=== PATIENT | female | born 1955 | race Caucasian/White ===

== ENCOUNTER 2019-06-08 09:22 | Inpatient (IN) | payer MEDICAID ==
[~2019-06-08] VITALS: Ht 165.1 cm; Wt 72.6 kg
[2019-06-08 09:28] VITALS: Ht 165.1 cm; Wt 72.6 kg
--- NOTE | 2019-06-08 09:35 | NUR ---
PATIENT BIB [facility] WITH ALOC. PT WAS FOUND IN [facility]. PT RESPONDS TO TOUCH AND ANSWERS QUESTIONS WITH FEW WORD ANSWERS. PT ADMITS TO "HAVING A COCKTAIL" ETOH ODOR NOTED COMING FROM MOUTH, BREATHING E/U, SKIN WARM AND DRY, 1CM X 1 CM SKIN TEAR NOTED TO RIGHT HAND. PT PLACED ON ALL MONITORS FOR FURTHER OBSERVATION. WILL CONTINUE TO MONITOR.
--- NOTE | 2019-06-08 09:53 | NUR ---
MEDICATED PER MD ORDERS
--- NOTE | 2019-06-08 10:20 | NUR ---
PATIENT TAKEN FOR CT SCAN- VSS-
--- NOTE | 2019-06-08 10:30 | NUR ---
PATIENT PLACED ON WARMING BLANKET AND RECTAL THERMOMETER TO MONITOR TEMP. WILL CONTINUE TO MONITOR.
[2019-06-08 10:31] LABS: ALBUMIN 4.1 g/dL (3.4-5.0); ALKALINE PHOSPHATASE 90 U/L (46-116); ALT/SGPT 23 U/L (14-59); AST/SGOT 22 U/L (15-37); BILIRUBIN TOTAL 0.19 mg/dL (0.20-1.00); CALCIUM 8.1 mg/dL (8.5-10.1); CARBON DIOXIDE 25.6 mmol/L (21-32); CHLORIDE SERUM 108 mmol/L (98-107); CHOLESTEROL 153 mg/dL (<200); GFR1 59 mL/min; GLUCOSE SERUM 100 mg/dL (74-106); HDL CHOLESTEROL 51 mg/dL (40-60); POTASSIUM SERUM 3.2 mmol/L (3.5-5.1); SODIUM SERUM 143 mmol/L (136-145); TOTAL PROTEIN, SERUM 7.6 g/dL (6.4-8.2)
[2019-06-08 10:36] LABS: BASOPHIL % 0.6 % (0-2); PLATELET COUNT 213 x10^3mcL (130-400); RED CELL DISTRIBUTION WIDTH 14.2 % (11.5-14.5)
[2019-06-08 10:39] LABS: FREE T4 0.94 ng/dL (0.76-1.46); FREE THYROXINE INDEX 2.1 ug/dL (1.4-4.5); T4(THYROXINE) 6.5 ug/dL (4.7-13.3)
[2019-06-08 11:01] LABS: T3 TOTAL 1.06 ng/mL
--- NOTE | 2019-06-08 11:02 | NUR ---
PATIENT RESTING ON GURNEY- EASILY AROUSABLE. VSS, NAD NOTED. WILL CONTINUE TO MONITOR.
[2019-06-08 11:03] LABS: AMPHETAMINE QUAL UR POSITIVE (See below)
--- NOTE | 2019-06-08 12:17 | NUR ---
PATIENT SLEEPING ON GURNEY IN POSITION OF COMFORT. BREATHING E/U, NAD NOTED. WILL CONTINUE TO MONITOR.
--- NOTE | 2019-06-08 12:52 | NUR ---
PATIENT C/O BEING TOO HOT SCREAMING "GET ME OFF, ITS TOO HOT". PATIENT CORE TEMP AT 97.6, WARMING BLANKET TURNED OFF. WILL CONTINUE TO MONITOR.
--- NOTE | 2019-06-08 13:00 | NUR ---
PATIENT MORE ALERT, PT ADMITS TO HX OF METH USE BUT STS LAST TIME "SHE USED YEARS AGO". PATIENT SAYS SHE CAN'T REMEMBER WHAT TIME SHE LEFT THE HOUSE AND ENDED UP IN THE BUSHES. WILL CONTINUE TO MONITOR.
--- NOTE | 2019-06-08 13:11 | NUR ---
RECIEVED CALL FROM PATIENTS FRIEND WHO PT HAS BEEN STAYING WITH X 7 DAYS. I WAS GIVEN PERMISSION BY PT OK TO SPEAK WITH HER FRIEND "ELIAN". ELIAN CLAIMS THAT PT HAS A LOT OF HEALTH ISSUES AND HAS BEEN TRYING TO ACTIVATE HER MEDICAL. PT RAN OUT OF MEDICATIONS A FEW DAYS AGO, SO PATIENTS FRIEND GAVE HER SOME OF HER MEDICATIONS. MEDICATIONS GIVEN WERE, BUSPAR, SEROQUEL, TRAZADONE, GABAPENTIN, AND CLONIPIN. WHEN I ASKED HOW LONG PATIENT WAS OUT ALL NIGHT, FRIEND RESPONDED THAT SHE HAD NO IDEA WHEN SHE LEFT THE HOUSE BUT THOUGHT IT WAS AROUND 0600 BECAUSE "WHEN I GOT UP TO USE THE BATHROOM SHE WAS GONE BUT THE HOUSE WAS CLEANED". CONTACT FOR PATIENT IS ELIAN - CALL HER TO COAT CHECKER PATIENT WHEN PATIENT IS D/C'D. ELIAN ALSO NOTED PATIENT HAS A LONG PSYCHATRIC HX, WITH BIPOLAR BEING ONE DIAGNOSES.
--- NOTE | 2019-06-08 13:37 | NUR ---
ASSISTED PATIENT ON BED CHACON AND THEN MEDICATED PER MD ORDERS. WILL CONTINUE TO MONITOR.
--- NOTE | 2019-06-08 14:02 | NUR ---
PROVIDED REPORT TO IVY GARCIA FOR CONTINUED CARE OF PATIENT.
--- NOTE | 2019-06-08 14:29 | NUR ---
[facility] ACCOMPANIED BY RN AND TRANSPORTER. PT DROWSY, ORIENTED X 2 (PERSON, TIME), HAS SLURRED SPEECH, RESPONSES ARE SLUGGISH; COOPERATIVE TO CARE AT THIS TIME. GENERALIZED WEAKNESS, ABLE TO SLIDE FROM GUERNEY TO BED ON HER OWN, STATED THAT SHE AMBULATES AT HOME W/ CANE, C/O INTERMITTENT ACHING LEFT KNEE PAIN 5/10, EXACERBATED BY MOVEMENT AND WALKING, RELIEVED BY REST AND PAIN MEDICATIONS; FALL RISK PROTOCOL IN PLACE. ON TELE # 10, HR 85, SR + OCCASIONAL PAC'S, DENIES CHEST PAIN OR DISCOMFORT AT THIS TIME. SCD BY BEDSIDE. NO ACUTE RESPIRATORY DISTRESS NOTED. WEARS FULL UPPER DENTURES. HAS EPISODES OF BLADDER INCONTINENCE SINCE ADMISSION 2/2 ALOC, DENIES DYSURIA. NOTED PROXIMAL DORSAL RFA SKIN TEAR W/ MINIMAL SANGUINOUS DRAINAGE, COVERED W/ BANDAID. IV SITE RAC 20G, CDI. PT SMOKES 4 STICKS OF CIGARETTE PER DAY, STATED THAT SHE IS TRYING TO CUT DOWN, DENIES ETOH CONSUMPTION, DENIES DRUG USE. ORIENTED PT TO ROOM, BED CONTROLS, CALL LIGHT SYSTEM. SIDE RAILS UP X 2, BED IN LOW POSITION. WILL ENDORSE TO ANUSHA HAYNES.
[2019-06-08 15:18] VITALS: BP 174/106
[2019-06-08 17:16] VITALS: BP 139/88
--- NOTE | 2019-06-08 18:44 | NUR ---
PT SITTING UP IN BED. NO ACUTE RESP DISTRESS NOTED ON RA. PT ASKING "SHOULD I JUST GO TO THE BATHROOM IN THE BED IF I NEED TO GO" INSTRUCTED PT TO USE CALL LIGHT WHEN SHE NEEDS TO USE BATHROOM. PT VERBALIZED UNDERSTANDING. IV PATENT AND INFUSING TO LAC. NO REDNESS OR SWELLING NOTED. PT DENIES ANY PAIN AT THIS TIME. WILL ENDORSE TO COKEMAN RN. CALL LIGHT IN REACH. BED IN LOWEST POSITION.
--- NOTE | 2019-06-08 19:33 | NUR ---
RECEIVED PT FROM DAY SHIFT RN. PT AAOX4 AT THIS TIME. DENIES ANY PRICE/DIZZINESS. TELE #10 SR HR93. PT DENIES CHEST PAIN/PRESSURE. ABD SOFT/ROUND. ACTIVE BOWEL SOUNDS. DENIES AB PAIN/N/V. GENERALIZED WEAKNESS. PT ABLE TO TURN AND REPOSITION IN BED. RFA SKIN TEAR COVERED WITH DRESSING. IV RAC PATENT, INFUSING WELL. NO SIGNS OF DISTRESS. CALL BUTTON WITHIN REACH. SAFETY PRECAUTIONS IN PLACE. WILL CONTINUE TO MONITOR.
[2019-06-08 22:47] VITALS: BP 110/70
--- NOTE | 2019-06-09 00:37 | NUR ---
PT RESTING. BREATHING EVEN AND UNLABORED ON RA. NO SOB NOTED. NO SIGNS OF DISTRESS NOTED. CALL BUTTON WITHIN REACH. SAFETY PRECAUTIONS IN PLACE. WILL CONTINUE TO MONITOR.
--- NOTE | 2019-06-09 03:00 | NUR ---
ROUNDS MADE. PT RESTING. NO SIGNS OF DISTRESS. CALL BUTTON WITHIN REACH. SAFETY PRECAUTIONS IN PLACE. WILL CONTINUE TO MONITOR.
--- NOTE | 2019-06-09 05:49 | NUR ---
PT SLEPT MOST OF THE NIGHT WITH NO SIGNS OF DISTRESS. BREATHING EVEN AND UNLABORED ON RA WITH NO SOB NOTED. IV PATENT, INFUSING WELL. PT TURN AND REPOSITIONED IN BED EVERY 2 HOURS AND NEEDED. PT MEDICATED PER EMAR. PT DENIES ANY PAIN/DISTRESS. CALL BUTTON WITHIN REACH. SAFETY PRECAUTIONS IN PLACE. WILL CONTINUE TO MONITOR AND ENDORSE CARE TO DAY SHIFT RN.
[2019-06-09 05:55] VITALS: BP 116/81
[2019-06-09 06:47] LABS: CALCIUM 7.7 mg/dL (8.5-10.1); CARBON DIOXIDE 22.6 mmol/L (21-32); CHLORIDE SERUM 110 mmol/L (98-107); CREATININE SERUM 0.7 mg/dL (0.6-1.0); GFR1 > 60 mL/min; GLUCOSE SERUM 92 mg/dL (74-106); SODIUM SERUM 144 mmol/L (136-145)
[2019-06-09 06:53] LABS: BASOPHIL % 0.5 % (0-2); PLATELET COUNT 174 x10^3mcL (130-400)
--- NOTE | 2019-06-09 07:32 | NUR ---
PT AWAKE REPORTED HAVING A HEADACHE, TYLENOL GIVEN PER EMAR. ENDORSED CARE TO DAY SHIFT RN, ALL QUESTIONS ADDRESSED.
--- NOTE | 2019-06-09 07:47 | NUR ---
A+OX4, NO RESPRIATORY DISTRESS NOTED, COMPLAINING OF PRICE, TYLENOL PO GIVEN, PULSES MODERATE AND EQUAL CHRIS, NO EDEMA NOTED, LUNG SOUNDS CTA, TOELRATING RA, BOWEL SOUNDS ACTIVE, INCONTINENT AT TIMES, GENERALIZED WEAKNESS, RFA SKIN TEAR WITH BAND AID CDI, IV IN RAC WITH NS @ 50 ML/HR, SITE WNL.
--- NOTE | 2019-06-09 09:31 | NUR ---
PT RESTING IN BED, NO RESPRIATORY DISTRESS NOTED, DENIES PAIN, STATES SHE IS READY FOR DC TODAY, CALL LIGHT WITHIN REACH.
[2019-06-09 09:41] VITALS: BP 138/95
[2019-06-09] MEDS ORDERED: SEROQUEL100 MG PO (10:18)
[2019-06-09 10:25] VITALS: BP 138/95
--- NOTE | 2019-06-09 10:57 | NUR ---
PT GIVEN DC INSTRUCTIONS INCLUDING PRESCRIPTION AND VERBALIZED UNDERSTANDING. PT STATES SHE HAS NO RIDE AT THIS TIME AND IS REACHING OUT TO FAMILY AND FRIENDS TO ASK FOR A RIDE HOME.
[2019-06-09 11:50] VITALS: BP 147/90
--- NOTE | 2019-06-09 13:32 | NUR ---
IV REMOVED WITH CATHETER INTACT, SITE WNL, GAUZE AND TAPE PLACED ON SITE. TELE REMOVED AND RETURNED TO [facility]. PT AWAITING RIDE.
--- NOTE | 2019-06-09 14:25 | NUR ---
PT OFF UNIT AMBULATING INDEPENDENTLY WITH ALL BELONGINGS ESCORTED BY [employer] AND FAMILY.
== END 2019-06-09 14:30 | disposition home or self-care (01) | DRG 775 ==
LOC: ED 09:22 → DU 13:16 → ED 13:37 → DU 13:37
PROVIDERS: Emergency Medicine; ADMIT Internal Medicine
DX: F10.129 Alcohol abuse with intoxication, unspecified (principal); G93.41 Metabolic encephalopathy; F19.129 Other psychoactive substance abuse with intoxication, unspecified; F31.9 Bipolar disorder, unspecified; E86.0 Dehydration; E87.6 Hypokalemia; F32.9 Major depressive disorder, single episode, unspecified; I10 Essential (primary) hypertension; M19.90 Unspecified osteoarthritis, unspecified site; F17.210 Nicotine dependence, cigarettes, uncomplicated; Z85.038 Personal history of other malignant neoplasm of large intestine; Y90.0 Blood alcohol level of less than 20 mg/100 ml
CPT/HCPCS: 84439; G0378; G0480; J2310; J3480; J3490; J7030; Q0092